=== PATIENT | male | born 1945 | race Caucasian/White ===

== ENCOUNTER 2016-09-30 19:19 | Emergency (ER) | payer OTHER, MEDICARE ==
[~2016-09-30] VITALS: Ht 167.6 cm; Wt 93.2 kg
[~2016-09-30 19:19] MED LIST: ASPCH81X PO; CLC100X PO; ENOX40IN SQ; HYDR-5688 PO; LPR25 PO; LPT/40 PO; NITR0.4S UT; TACLONEX
[2016-09-30 19:20] VITALS: Ht 167.6 cm; Wt 93.2 kg
[2016-09-30] MEDS ORDERED: NEOMYCIN/POLYMYX/HYDROCORT OT SOLN 10 ML BTL OT ONE (19:45)
[2016-09-30 20:16] VITALS: BP 165/94; PULSE 90; TEMP 36.6; O2SAT 94
--- NOTE | 2016-09-30 23:53 | EMERGENCY ROOM VISIT NOTE ---
History Report prepared by Danielle: Bev Meyer Under the Supervision of: Dr. Osmin Begum M.D. First contact with patient: 19:25 Chief Complaint: EAR PAIN Stated Complaint: POSSIBLE INFECTION IN RT EAR W/PAIN History of Present Illness The patient is a 71 year old male who presents to the Emergency Room with complaints of persistent right ear pain that began . He currently rates his discomfort as a 7/10 in severity. The patient states that when his pain began he thought he had a pimple developing in his ear canal. He states that no pimple surfaced. The patient states that he is feeling stuffed up, but denies any fever, vomiting, or sinus congestion. He denies any recent swimming. The patient states that he can still hear but states that he feels that he is in an echo chamber. Source of History: patient Onset: Position: ear (right) Symptom Intensity: 7/10 Timing: other (persistent) Associated Symptoms: No fevers, No vomiting Note: Associated symptoms: feeling stuffed up Review of Systems See HPI for pertinent positives & negatives. A total of 4 systems reviewed and were otherwise negative. Past Medical & Surgical Medical Problems: (1) Brain aneurysm (2) Diverticulitis (3) Heart disease (4) Hypertension (5) Myocardial infarction Surgical Problems: (1) S/P knee surgery Family History Diabetes mellitus Heart disease Hypertension Social History Smoking Status: Former Smoker Alcohol Use: occasionally Marital Status: Housing Status: lives with significant other Occupation Status: retired Current/Historical Medications Scheduled Aspirin (Aspirin Chewable), 81 MG PO DAILY Atorvastatin (Lipitor), 40 MG PO DAILY Hydrocodone/Acetaminophen 5MG/325MG ([place] 5MG/325MG), 1-2 TABLET PO Q4-6HR PRN Metoprolol Tartrate (Lopressor), 25 MG PO BID Nitroglycerin (Nitrostat), 0.4 MG UT PRN [Taclonex Oint], 1 APPLN PRN Allergies Coded Allergies: Zolpidem (Verified Allergy, Intermediate, HALLUCINATION, CONFUSION, ) Promethazine (Verified Allergy, Unknown, 04/29/09) Physical Exam Vital Signs Date Time Temp Pulse Resp B/P (MAP) Pulse Ox O2 Delivery O2 Flow Rate FiO2 09/30/16 20:16 36.6 90 18 165/94 94 09/30/16 19:20 36.6 90 18 165/94 94 Room Air Physical Exam Constitutional: Vital signs reviewed. Eyes: Pupils are equal round reactive to light. Conjunctiva are noninjected. ENT: Tenderness with movement of the tragus, swelling and erythema to the external auditory canal, TM appears clear on the right. Left external auditory canal and TM are within limits. Pharynx is clear without erythema or exudate. Mucous membranes are moist. Neck supple without meningeal signs. Neurological: The patient is awake and alert. No focal deficits. Psychiatric: Normal affect. Medical Decision & Procedures Medications Administered Medications (Trade) Dose Ordered Sig/Velma Route Start Time Stop Time Status Last Admin Dose Admin Neomycin/ Polymyxin/ Hydrocortisone (Cortisporin Otic Soln) 4 drops NOW ONCE OT 09/30/16 19:45 09/30/16 19:46 DC 09/30/16 19:45 4 DROPS ED Course 1925: The patient was evaluated in room D6. A complete history and physical exam was performed. I discussed all the exam findings with him and I discussed the treatment plan. He verbalized complete understanding and agreement. He is ready to go home. 1944: Ordered Cortisporin Otic Soln 4 drops OT. Medical Decision This is a 71-year-old male who presents with ear pain. I did perform a limited focused review of portions of the patient's old chart on the electronic medical record. The patient has had no recent pertinent visits to this hospital. Medication Reconciliation: I attest that I have personally reviewed the patient' s current medication list. Blood Pressure Screening: Patient was found to have an elevated blood pressure and was referred to their primary doctor for recheck and further treatment. I did evaluate the patient as noted above. The patient has a right otitis externa without otitis media. I did treat the patient with a ten-day course of Cortisporin otic. He was discharged in good condition. Impression Primary Impression: Right otitis externa Scribe Attestation The scribe's documentation has been prepared under my direct and personally reviewed by me in its entirety. I confirm that the note above accurately reflects all work, treatment, procedures, and medical decision making performed by me. Departure Information Dispostion Home / Self-Care Referrals Eros Santos D.O. (PCP) Forms HOME CARE DOCUMENTATION FORM, IMPORTANT VISIT INFORMATION, WORK / SCHOOL INSTRUCTIONS Patient Instructions ED Otitis Externa, My [facility] Additional Instructions You have been examined and treated today on an emergency basis only. This is not a substitute for, or an effort to provide, complete comprehensive medical care. It is impossible to recognize and treat all injuries or illnesses in a single emergency department visit. It is therefore important that you follow up closely with your physician. Call as soon as possible for an appointment. Return for worsening symptoms or if you develop fever, vomiting, bleeding from the ear or any other concerning symptoms. Put four ears drops in your right ear three times a day for ten days. Avoid swimming or getting moisture in your ear. Problem Qualifiers Primary Impression: Right otitis externa Otitis externa type: unspecified type Chronicity: acute Qualified Codes: H60.501 - Unspecified acute noninfective otitis externa, right ear
== END 2016-09-30 20:17 | disposition home or self-care (01) ==
LOC: C.EDB 19:20 → C.EDD 20:17
DX: H60.501 Unspecified acute noninfective otitis externa, right ear (principal); I10 Essential (primary) hypertension; I25.2 Old myocardial infarction; Z86.79 Personal history of other diseases of the circulatory system; Z87.891 Personal history of nicotine dependence; Z79.82 Long term (current) use of aspirin; Z83.3 Family history of diabetes mellitus; Z82.49 Family history of ischemic heart disease and other diseases of the circulatory system

== ENCOUNTER 2024-11-19 21:25 | Inpatient (IN) ==
--- NOTE | 2024-11-19 22:33 | Emergency Department Note ---
ED Visit Note ED Physician Supervisory Note & Attestation: I was consulted by the Advanced Practice Provider, Melva ANGELES. I personally made/approved the management plan and take responsibility for the patient management. I performed a substantive portion of the visit. This includes the aspects of: Patient was evaluated by me at bedside. Patient looks well he is no pain and his vital signs are stable. Has had 3 large bloody bowel movements filling the toilet each time this evening. MDM: 79-year-old gentleman on aspirin who had multiple polyps removed earlier today during colonoscopy arrives for heavy GI bleeding. Fortunately initial vital signs stable. Labs type and cross obtained with relatively stable hemoglobin. Plan for hospitalization and continued monitoring. Mj Marti MD
--- NOTE | 2024-11-19 22:56 | Emergency Department Note ---
History of Present Illness General Chief complaint: Rectal Bleed Stated complaint: RECTAL BLEED Time Seen by Provider: 11/19/24 22:16 History of Present Illness This 79-year-old male on aspirin presents ER for 4 episodes of bloody diarrhea who had a colonoscopy today and had a large polyp removed. Patient states he had a cheeseburger and fries for dinner and then later on felt like he had to go the bathroom had some dark liquid diarrhea and then bright red blood. He has had 3 more episodes since with bright red blood. No history of blood transfusion in the past. Patient denies chest pain, dyspnea, abdominal pain, lightheadedness, dizziness. Home Medications Medication Instructions Recorded Confirmed Type aspirin 81 mg tablet,delayed 81 mg PO QAM 08/01/21 11/19/24 History release atorvastatin 40 mg tablet 40 mg PO HS 08/01/21 11/19/24 History furosemide 40 mg tablet 40 mg PO HS 08/01/21 11/19/24 History hydrocodone 5 mg-acetaminophen 325 1 tab PO BID 08/01/21 11/19/24 History mg tablet losartan 50 mg tablet 50 mg PO HS 08/01/21 11/19/24 History metoprolol tartrate 25 mg tablet 25 mg PO BID 08/01/21 11/19/24 History calcium carbonate 2,400 mg PO QAM 11/19/24 11/19/24 History cholecalciferol (vitamin D3) 50 50 mcg PO DAILY 11/19/24 11/19/24 History mcg (2,000 unit) capsule (Vitamin D3) levothyroxine 112 mcg tablet 112 mcg PO DAILYBB 11/19/24 11/19/24 History Allergies Allergy/AdvReac Type Severity Reaction Status Date / Time zolpidem AdvReac Severe Hallucinations, Verified 11/19/24 22:39 confusion promethazine [From Phenergan] AdvReac Intermediate Hallucinati Verified 11/19/24 22:39 ng Past Med/Surg History Problem List (Updated 11/20/24 @ 02:18 by Zuleyka Olivera PA-C) Painless rectal bleeding (Acute) Osteoarthritis of left knee Left knee pain Left bundle branch block Encounter for pre-operative examination Obesity Heart disease (Chronic) Hypertension (Chronic) Right otitis externa (Acute) Medical History Left bundle branch block Obesity History of diverticulitis Retaining fluid Polychondritis Family history of brain aneurysm History of myocardial infarction Thyroid disease HTN (hypertension) Borderline high cholesterol Surgical History History of colonoscopy History of lumbar spinal fusion History of left knee surgery History of right knee surgery History of bowel resection History of surgery Hx of cardiac cath Family History Other Family history of diabetes mellitus in father Social History Smoking Status: Never smoker Do You Dip or Chew Tobacco: No; Hx Alcohol Use: Yes (RARE/MINIMAL) Preferred Language: Slovak Communication Ability: Effective 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 Required: No Beliefs That Will Affect Care: None Current Living Situation: Spouse Feels Safe at Home: Yes Assistive Devices: Glasses Review of Systems A total of 10 systems reviewed and were otherwise negative Physical Exam Vital Signs Vital Signs - 24 hr 11/19/24 21:33 11/19/24 22:54 11/19/24 22:54 Temperature 36.8 C Temperature Source Temporal Artery Scan Pulse Rate 85 Pulse Rate [Apical] 68 Pulse Rhythm [Apical] Pulse Strength [Apical] Respiratory Rate 18 15 Respiratory Effort / Characteristics Non-Labored Spontaneous Non-Labored Spontaneous Respiratory Depth Normal Normal Respiratory Pattern Regular Blood Pressure 117/80 Blood Pressure [Right Arm] 123/83 Blood Pressure Mean 92 Blood Pressure Mean [Right Arm] 96 Blood Pressure Position [Right Arm] Semi-fowlers Pulse Oximetry 97 95 95 Oxygen Delivery Method Room Air Room Air Room Air Sepsis Recent Fever Within 48 Hours No Sepsis New/Unexplained Change in Mental Status N/A Sepsis Action Taken by Nursing No Action Required 11/20/24 00:00 Temperature Temperature Source Pulse Rate Pulse Rate [Apical] 67 Pulse Rhythm [Apical] Regular Pulse Strength [Apical] Normal Respiratory Rate 20 Respiratory Effort / Characteristics Non-Labored Spontaneous Respiratory Depth Normal Respiratory Pattern Regular Blood Pressure Blood Pressure [Right Arm] 124/66 Blood Pressure Mean Blood Pressure Mean [Right Arm] 85 Blood Pressure Position [Right Arm] Lying Pulse Oximetry 96 Oxygen Delivery Method Room Air Sepsis Recent Fever Within 48 Hours Sepsis New/Unexplained Change in Mental Status Sepsis Action Taken by Nursing VITALS: Vitals are noted on the nurse's note and reviewed by myself. Vital signs stable. GENERAL: Pleasant patient with present, in no acute distress, nondiaphoretic, well-developed well-nourished. SKIN: Capillary reflex less than 2 seconds. HEENT: Normocephalic. PERRLA. EOMI. Nares patent. Mucous membranes moist. Neck is supple without nuchal rigidity. HEART: Regular rate and rhythm LUNGS: Clear to auscultation bilaterally without wheezes, rales or rhonchi. No retractions or accessory muscle use. ABDOMEN: Positive bowel sounds x 4. Normal tympanic percussion. Soft, nontender, without masses or organomegaly. Otoole sign negative. No guarding or rebound tenderness. no CVA tenderness MUSCULOSKELETAL: No gross musculoskeletal defects. NEURO: Patient was alert and oriented to person place and time. No focal neurological deficits. Course Administered Medications Discontinued Medications Pantoprazole Sodium 80 mg/ (Dextrose) 120 mls @ 480 mls/hr IV ONE STA Stop: 11/19/24 22:34 Last Infusion: 11/20/24 00:56 Dose: Infused Documented By: Admin: 11/20/24 00:41 Dose: 480 mls/hr Documented By: DANIELA Famotidine (Pepcid 20mg Iv Push) 20 mg in 5 mls @ 2.5 mls/min IV NOW STA Stop: 11/19/24 22:21 Last Admin: 11/19/24 23:01 Dose: 2.5 mls/min Documented By: brooklyn Ioversol (Optiray 320 100ml) 100 ml IV ONCE ONE Stop: 11/20/24 00:08 Last Admin: 11/20/24 00:07 Dose: 93 ml Documented By: SUSI Medical Decision Making Medical Records Attestation: I reviewed the patient's medical records. Home Medications Current Medication List: was personally reviewed by me Laboratory Data Attestation: I reviewed the patient's lab results. 11/20/24 01:04 11/19/24 22:43 Lab Results 11/19/24 11/19/24 11/19/24 Range/Units 22:36 22:43 22:49 WBC 10.50 (4.8-10.8) K/ul RBC 5.14 (4.70-6.10) M/uL Hgb 15.4 (14.0-18.0) g/dl POC Hgb 15.6 (14.0-18.0) g/dl Hct 44.8 (42.0-52.0) % POC Hct 46 (42-52) % MCV 87.2 (80.0-100.0) fL MCH 30.0 (25.0-34.0) pg MCHC 34.4 (32.0-36.0) g/dL RDW Std Deviation 40.2 (36.4-46.3) fL RDW Coeff of Carlin 12.8 (11.5-14.5) % Plt Count 178 (130-400) K/uL MPV 11.2 (9.4-12.4) fL PT 10.7 (9.0-12.0) Seconds INR 1.0 (0.9-1.1) APTT 31 (21-31) Seconds PTT Ratio 1.2 POC Sodium 140 (135-144) mmol/L Sodium 138 (136-145) mmol/L POC Potassium 4.1 (3.3-5.0) mmol/L Potassium 4.0 (3.5-5.1) mmol/L POC Chloride 101 (101-112) mmol/L Chloride 103 (98-107) mmol/L Carbon Dioxide 26 (21-32) mmol/L POC Total CO2 25 (24-31) mmol/L Anion Gap 9 (3-11) POC Anion Gap 19.0 (16-25) mmol/L POC BUN 27 H (7-18) mg/dl BUN 26 H (6-23) mg/dl Creatinine 1.19 (0.6-1.4) mg/dl POC Creatinine 1.3 (0.6-1.3) mg/dl Est Cr Clr Drug Dosing 52.5 ml/min eGFR 62.91 BUN/Creatinine Ratio 21.8 H (10-20) Glucose 130 H (70-99(Fasting)) mg/dl POC Glucose (other) 132 H (70-99) mg/dl Calcium 9.1 (8.6-10.3) mg/dl POC Ioniz Calcium Justus 1.12 (1.12-1.32) mmol/l Total Bilirubin 1.1 H (0.2-1.0) mg/dl AST 23 (13-39) U/L ALT 31 (7-52) U/L Alkaline Phosphatase 95 (34-104) U/L Troponin I High Sens 5.9 (0-20) pg/ml Total Protein 7.6 (6.0-8.3) gm/dl Albumin 4.1 (3.4-5.0) gm/dl Globulin 3.5 (2.5-4.0) gm/dl Albumin/Globulin Ratio 1.2 (0.9-2) POC Stool Occult Blood (Negative) Blood Type O Positive Antibody Screen NEGATIVE 11/20/24 11/20/24 Range/Units 00:18 01:04 WBC (4.8-10.8) K/ul RBC (4.70-6.10) M/uL Hgb 14.5 (14.0-18.0) g/dl POC Hgb (14.0-18.0) g/dl Hct 42.8 (42.0-52.0) % POC Hct (42-52) % MCV (80.0-100.0) fL MCH (25.0-34.0) pg MCHC (32.0-36.0) g/dL RDW Std Deviation (36.4-46.3) fL RDW Coeff of Carlin (11.5-14.5) % Plt Count (130-400) K/uL MPV (9.4-12.4) fL PT (9.0-12.0) Seconds INR (0.9-1.1) APTT (21-31) Seconds PTT Ratio POC Sodium (135-144) mmol/L Sodium (136-145) mmol/L POC Potassium (3.3-5.0) mmol/L Potassium (3.5-5.1) mmol/L POC Chloride (101-112) mmol/L Chloride (98-107) mmol/L Carbon Dioxide (21-32) mmol/L POC Total CO2 (24-31) mmol/L Anion Gap (3-11) POC Anion Gap (16-25) mmol/L POC BUN (7-18) mg/dl BUN (6-23) mg/dl Creatinine (0.6-1.4) mg/dl POC Creatinine (0.6-1.3) mg/dl Est Cr Clr Drug Dosing ml/min eGFR BUN/Creatinine Ratio (10-20) Glucose (70-99(Fasting)) mg/dl POC Glucose (other) (70-99) mg/dl Calcium (8.6-10.3) mg/dl POC Ioniz Calcium Justus (1.12-1.32) mmol/l Total Bilirubin (0.2-1.0) mg/dl AST (13-39) U/L ALT (7-52) U/L Alkaline Phosphatase (34-104) U/L Troponin I High Sens (0-20) pg/ml Total Protein (6.0-8.3) gm/dl Albumin (3.4-5.0) gm/dl Globulin (2.5-4.0) gm/dl Albumin/Globulin Ratio (0.9-2) POC Stool Occult Blood Positive A (Negative) Blood Type Antibody Screen Imaging Data Attestation: I personally reviewed and interpreted this imaging study as follows: Radiologist's Impression: Abdomen/Pelvis CT 11/19/24 22:20 EXAM: CT abd pelvis IV con only CLINICAL HISTORY: colonoscopy today, rectal bleeding, polyp removed TECHNIQUE: Contiguous axial images were obtained from the level of the diaphragm to the pubic symphysis with intravenous contrast. Coronal and sagittal reconstructions were likewise performed and indicated to increase the sensitivity for detecting clinically relevant pathology. If IV contrast material had not been administered, the likelihood of detecting abnormalities relevant to the patient's condition would have been substantially decreased. CT scan was performed according to ALARA (as low as reasonable achievable). COMPARISON: None FINDINGS: The visualized lung bases are clear. The liver is normal in size and attenuation. Few hypodense lesions are noted in bothlobe of liver - appears benign/ could be Cyst (Advice: Triphasic study correlation). There is no intra or extrahepatic biliary ductal dilatation. Hepatic vasculature is patent. The gallbladder is present. The spleen, pancreas, and adrenal glands are unremarkable. The kidneys are normal in size and attenuation. There is no hydronephrosis or perinephric fat stranding. No renal calculi or renal masses are identified. The ureters are normal in caliber and no ureteral calculi are seen. The bladder is normal in contour. Pelvic viscera are unremarkable. Enlarged prostate measuring about 56 x 58 mm. No focal or diffuse bowel wall thickening or evidence of bowel obstruction is identified. The appendix is visualized in the right lower quadrant and appears within normal limits. Abdominal and pelvic vasculature is patent. No adenopathy or fluid collections are seen. No aggressive appearing osseous lesions are identified. Fat containing right sided inguinal hernia. Degenerative changes involving spine in the form of multilevel marginal osteophytes, disc space reduction and facetal arthrosis. IMPRESSION: 1. Few hypodense lesions are noted in both lobe of liver - appears benign/ could be Cyst (Advice: ultrasound). 2. Enlarged prostate. 3. Fat containing right sided inguinal hernia. 4. No other intra-abdominal abnormalities. Electronically signed by Jose D Dow 11-20-2024 01:38 AM [facility] Narrative Prior records/ancillary studies reviewed. Triage Nursing notes reviewed. Additional history obtained from the family. The patient's history was concerning for possible gastrointestinal bleeding. Differential diagnosis: Etiologies such as complication of colonoscopy, diverticulosis, AVM, coagulopathy, colitis, inflammatory bowel disease, malignancy, Kathi-Seo tear, esophagitis, peptic ulcer disease, variceal bleed, gastritis, epistaxis, fissure, hemorrhoids, as well as others were entertained. Physical exam: As above. The patients vital signs were stable. ER treatment provided: An order was placed for continuous cardiac monitoring. The monitor shows a rate of 60-100 with a sinus rhythm per my interpretation. Protonix, Pepcid, 2 IV lines, IV fluids type and screen was sent and patient was consented to blood if warranted On reassessment the patient felt better. Diagnostics interpreted by me: ECG: Ordered for GI bleed EKG: Normal sinus, right axis, left bundle branch block, no acute ST-T wave changes, no Sgarbossa, rate of 73. Impression normal sinus rhythm left bundle branch block independently interpreted myself The labs Independently Interpreted by myself revealed stable H&H, repeat H&H is similar Type and screen sent Imaging studies: Imaging was reviewed and read by radiology Consultation: A consultation was placed with the hospitalist. The case was discussed and diagnostics were reviewed. The patient was evaluated in the ER for further treatment. This appears to be consistent with rectal bleeding from recent colonoscopy from polyps being removed. Stable H&H. Imaging was reviewed. Medicine was consulted and case discussed. Patient will be admitted to the medical service. By the evaluation outlined above emergent etiologies such as esophageal perforation, peptic ulcer disease, variceal bleed, coagulopathy, gastritis, epistaxis, malignancy, inflammatory bowel disease, as well as others were deemed relatively unlikely. The pt informed about the findings as listed above. All questions were answered and pleased with the treatment. The chart was completed utilizing [employer] Speech voice recognition software. Grammatical errors, random word insertions, pronoun errors, and incomplete sentences are an occassional consequence of this system due to software limitations, ambient noise, and hardware issues. Any formal questions or concerns about the content, text, or information contained within the body of this dictation should be directly addressed to the physician clinical assistant professor for clarification. Impression & Plan Painless rectal bleeding Discharge Plan Visit Data Chief Complaint: Rectal Bleed Stated Complaint: RECTAL BLEED ED Provider: Mj Marti ED Midlevel Provider: Zuleyka Olivera Discharge Problem: Painless rectal bleeding Patient Disposition: Admitted As Inpatient Condition: Good Forms Stand Alone Forms: [employer] Prescriptions Prescriptions: No Action losartan 50 mg Tablet 50 mg PO HS furosemide 40 mg Tablet 40 mg PO HS atorvastatin 40 mg Tablet 40 mg PO HS hydrocodone-acetaminophen 5-325 mg Tablet 1 tab PO BID Rx Instructions: MAY TAKE ADDITIONAL TABLET AFTER FIRST DOSE 1 DAY/WEEK. aspirin 81 mg Tablet,Delayed Release (Dr/Ec) 81 mg PO QAM metoprolol tartrate 25 mg Tablet 25 mg PO BID calcium carbonate 600 mg calcium (1,500 mg) Tablet 2,400 mg PO QAM levothyroxine 112 mcg tablet 112 mcg PO DAILYBB cholecalciferol (vitamin D3) [Vitamin D3] 50 mcg (2,000 unit) Capsule 50 mcg PO DAILY Referrals Referrals: Miguelito Bennett MD [Primary Care Provider] -
[2024-11-19] MEDS: FAMOTIDINE 20MG IV PUSH 20 MG/5 ML SYR IV STA (23:01)
[2024-11-19 23:09] LABS: Hematocrit (blood only) 44.8 % (42.0-52.0); Hemoglobin 15.4 g/dl (14.0-18.0); Mean Corpuscular Hemoglobin 30.0 pg (25.0-34.0); Mean Corpuscular Volume 87.2 fL (80.0-100.0); Platelet Count 178 K/uL (130-400); RDW Standard Deviation 40.2 fL (36.4-46.3); Red Blood Count 5.14 M/uL (4.70-6.10); White Blood Count 10.50 K/ul (4.8-10.8)
[2024-11-19 23:33] LABS: Alanine Aminotransferase 31.0 U/L (7-52); Albumin Globulin Ratio 1.2 (0.9-2); Alkaline Phosphatase 95.0 U/L (34-104); Anion Gap 9.0 (3-11); Bilirubin,Total 1.1 mg/dl (0.2-1.0); Blood Urea Nitrogen 26.0 mg/dl (6-23); Calcium 9.1 mg/dl (8.6-10.3); Carbon Dioxide 26.0 mmol/L (21-32); Chloride 103.0 mmol/L (98-107); Creatinine Clr Calc Pharmacy 52.5 ml/min; Globulin 3.5 gm/dl (2.5-4.0); Glucose 130.0 mg/dl (70-99(Fasting)); Potassium 4.0 mmol/L (3.5-5.1); Sodium 138.0 mmol/L (136-145); Total Protein 7.6 gm/dl (6.0-8.3)
[2024-11-19 23:39] LABS: INR 1.0 (0.9-1.1); Partial Thromboplastin Time 31 Seconds (21-31); Prothrombin Time 10.7 Seconds (9.0-12.0)
[2024-11-20] MEDS: OPTIRAY 320 100ml IV ONE (00:07)
[2024-11-20 01:33] LABS: Hematocrit (blood only) 42.8 % (42.0-52.0); Hemoglobin 14.5 g/dl (14.0-18.0)
--- NOTE | 2024-11-20 01:38 | CT Scan Report ---
EXAM: CT abd pelvis IV con only CLINICAL HISTORY: colonoscopy today, rectal bleeding, polyp removed TECHNIQUE: Contiguous axial images were obtained from the level of the diaphragm to the pubic symphysis with intravenous contrast. Coronal and sagittal reconstructions were likewise performed and indicated to increase the sensitivity for detecting clinically relevant pathology. If IV contrast material had not been administered, the likelihood of detecting abnormalities relevant to the patient's condition would have been substantially decreased. CT scan was performed according to ALARA (as low as reasonable achievable). COMPARISON: None FINDINGS: The visualized lung bases are clear. The liver is normal in size and attenuation. Few hypodense lesions are noted in bothlobe of liver - appears benign/ could be Cyst (Advice: Triphasic study correlation). There is no intra or extrahepatic biliary ductal dilatation. Hepatic vasculature is patent. The gallbladder is present. The spleen, pancreas, and adrenal glands are unremarkable. The kidneys are normal in size and attenuation. There is no hydronephrosis or perinephric fat stranding. No renal calculi or renal masses are identified. The ureters are normal in caliber and no ureteral calculi are seen. The bladder is normal in contour. Pelvic viscera are unremarkable. Enlarged prostate measuring about 56 x 58 mm. No focal or diffuse bowel wall thickening or evidence of bowel obstruction is identified. The appendix is visualized in the right lower quadrant and appears within normal limits. Abdominal and pelvic vasculature is patent. No adenopathy or fluid collections are seen. No aggressive appearing osseous lesions are identified. Fat containing right sided inguinal hernia. Degenerative changes involving spine in the form of multilevel marginal osteophytes, disc space reduction and facetal arthrosis. IMPRESSION: 1. Few hypodense lesions are noted in both lobe of liver - appears benign/ could be Cyst (Advice: ultrasound). 2. Enlarged prostate. 3. Fat containing right sided inguinal hernia. 4. No other intra-abdominal abnormalities. Electronically signed by Jose D Dow 11-20-2024 01:38 AM
--- NOTE | 2024-11-20 04:56 | History & Physical Report ---
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 Patient had colonoscopy yesterday. Per patient currently getting colonoscopy every 3 years because of polyps. Yesterday had colonoscopy and 5 polyps were removed and 1 polyp was 20 mm found in the hepatic flexure. Multiple colonic angioectasis without bleeding were found in the ascending colon and in the cecum. Did okay after colonoscopy. Last night around 9 PM patient started to have rectal bleed multiple episodes. Until 1 AM the bleeding was getting worse but after that seems to be improving. Denies abdominal pain. No fevers. Micturating okay. No chest pain or shortness of breath. No headache. No runny nose or sore throat. Currently resting comfortably and hemodynamically stable. Painless rectal bleeding Status post colonoscopy and polypectomy yesterday Hemoglobin stable at 14.5 Hemodynamic stable N.p.o., IV fluids H&H every 6 hours Telemetry GI consult for further recommendation. History of CAD In 2007 Holding aspirin for rectal bleed Continue metoprolol tartrate with holding parameters Continue statin Hypothyroidism Continue Synthyroid Hyperparathyroidism On calcium and vitamin supplements Follows with endocrinology Hypertension Continue losartan metoprolol tartrate with holding parameters Holding Lasix Diabetes Not on meds Currently n.p.o. Sliding scale Will follow HbA1c levels DVT prophylaxis SCDs Disposition Telemetry Full code. History of Present Illness Chief Complaint: Rectal bleed Primary Care Provider: Miguelito Bennett MD 79-year-old male with past medical history significant for type 2 diabetes, hyperlipidemia, psoriasis, relapsing polychondritis, CAD, chronic left bundle- branch block, history of cerebral aneurysm clipping and subsequent ventricular shunt June 2004, history of profound hypothyroidism with myxedema 2020, hyperparathyroidism presents with rectal bleeding post colonoscopy and polypectomy. Patient had colonoscopy yesterday. Per patient currently getting colonoscopy every 3 years because of polyps. Yesterday had colonoscopy and 5 polyps were removed and 1 polyp was 20 mm found in the hepatic flexure. Multiple colonic angioectasis without bleeding were found in the ascending colon and in the cecum. Did okay after colonoscopy. Last night around 9 PM patient started to have rectal bleed multiple episodes. Until 1 AM the bleeding was getting worse but after that seems to be improving. Denies abdominal pain. No fevers. Micturating okay. No chest pain or shortness of breath. No headache. No runny nose or sore throat. Currently resting comfortably and hemodynamically stable. Past medical history. As mentioned above. Past surgical history. Colonoscopy. Knee arthroscopy. Lumbar hemilaminectomy. Status post lap sigmoid colectomy status colostomy at [facility] in 2004. Excision of cyst from left neck. Cerebral aneurysm clipped and shunt placed. Left inguinal hernia repair. Social history. . Quit smoking 2004. Smoked 1.5 pack a day for 35 years. Alcohol rarely. No drug use. Family history. Sister had brain aneurysm. Father had diabetes. [place]. Sister had diverticulitis. Allergies Allergy/AdvReac Type Severity Reaction Status Date / Time zolpidem AdvReac Severe Hallucinations, Verified 11/19/24 22:39 confusion promethazine [From Phenergan] AdvReac Intermediate Hallucinati Verified 11/19/24 22:39 ng Home Medications Medication Instructions Recorded Confirmed Type aspirin 81 mg tablet,delayed 81 mg PO QAM 08/01/21 11/19/24 History release atorvastatin 40 mg tablet 40 mg PO HS 08/01/21 11/19/24 History furosemide 40 mg tablet 40 mg PO HS 08/01/21 11/19/24 History hydrocodone 5 mg-acetaminophen 325 1 tab PO BID 08/01/21 11/19/24 History mg tablet losartan 50 mg tablet 50 mg PO HS 08/01/21 11/19/24 History metoprolol tartrate 25 mg tablet 25 mg PO BID 08/01/21 11/19/24 History calcium carbonate 2,400 mg PO QAM 11/19/24 11/19/24 History cholecalciferol (vitamin D3) 50 50 mcg PO DAILY 11/19/24 11/19/24 History mcg (2,000 unit) capsule (Vitamin D3) levothyroxine 112 mcg tablet 112 mcg PO DAILYBB 11/19/24 11/19/24 History Past Med/Surg History Problem List (Updated 11/20/24 @ 02:18 by Zuleyka Olivera PA-C) Painless rectal bleeding (Acute) Osteoarthritis of left knee Left knee pain Left bundle branch block Encounter for pre-operative examination Obesity Heart disease (Chronic) Hypertension (Chronic) Right otitis externa (Acute) Medical History Left bundle branch block Obesity History of diverticulitis Retaining fluid Polychondritis Family history of brain aneurysm History of myocardial infarction Thyroid disease HTN (hypertension) Borderline high cholesterol Surgical History History of colonoscopy History of lumbar spinal fusion History of left knee surgery History of right knee surgery History of bowel resection History of surgery Hx of cardiac cath Family History Other Family history of diabetes mellitus in father Social History Smoking Status: Never smoker Do You Dip or Chew Tobacco: No; Hx Alcohol Use: Yes (RARE/MINIMAL) Preferred Language: Danish Communication Ability: Effective Patcher Required: No Beliefs That Will Affect Care: None Current Living Situation: Spouse Feels Safe at Home: Yes Assistive Devices: Glasses Review of Systems Review of Systems: All systems reviewed & are unremarkable except as noted in HPI & below Physical Exam Physical Exam: General- Not in distress Head- atraumatic Eyes- PERRL. ENT- oropharynx clear Neck- supple, no JVD. Lungs- clear to auscultation no wheezing or crackles Heart- regular rhythm; no murmur, no gallop. Abdomen- normal bowel sounds, soft, nontender, no distension Extremities- no pretibial edema, no erythema seen Neuro- alert, oriented PERRL, no facial palsy; no dysarthria; moves extremities Results & Data Results & Data Vital Signs (Past 12 Hours) Vital Signs Temp Pulse Pulse Resp BP BP Pulse Ox 11/20/24 04:00 62 18 144/79 H 93 11/20/24 02:00 63 20 120/77 95 11/20/24 01:00 61 15 139/73 92 11/20/24 00:00 67 20 124/66 96 11/19/24 22:54 95 11/19/24 22:54 68 15 123/83 95 11/19/24 22:32 79 11/19/24 21:33 36.8 C 85 18 117/80 97 O2 Del Method 11/20/24 04:00 Room Air 11/20/24 02:00 11/20/24 01:00 11/20/24 00:00 Room Air 11/19/24 22:54 Room Air 11/19/24 22:54 Room Air 11/19/24 22:32 11/19/24 21:33 Room Air Diagnostic Findings Laboratory Results WBC 10.50 K/ul (4.8-10.8) 11/19/24 22:43 RBC 5.14 M/uL (4.70-6.10) 11/19/24 22:43 Hgb 14.5 g/dl (14.0-18.0) 11/20/24 01:04 POC Hgb 15.6 g/dl (14.0-18.0) 11/19/24 22:49 Hct 42.8 % (42.0-52.0) 11/20/24 01:04 POC Hct 46 % (42-52) 11/19/24 22:49 MCV 87.2 fL (80.0-100.0) 11/19/24 22:43 MCH 30.0 pg (25.0-34.0) 11/19/24 22:43 MCHC 34.4 g/dL (32.0-36.0) 11/19/24 22:43 RDW Std Deviation 40.2 fL (36.4-46.3) 11/19/24 22:43 RDW Coeff of Carlin 12.8 % (11.5-14.5) 11/19/24 22:43 Plt Count 178 K/uL (130-400) 11/19/24 22:43 MPV 11.2 fL (9.4-12.4) 11/19/24 22:43 PT 10.7 Seconds (9.0-12.0) 11/19/24 22:43 INR 1.0 (0.9-1.1) 11/19/24 22:43 APTT 31 Seconds (21-31) 11/19/24 22:43 PTT Ratio 1.2 11/19/24 22:43 POC Sodium 140 mmol/L (135-144) 11/19/24 22:49 Sodium 138 mmol/L (136-145) 11/19/24 22:43 POC Potassium 4.1 mmol/L (3.3-5.0) 11/19/24 22:49 Potassium 4.0 mmol/L (3.5-5.1) 11/19/24 22:43 POC Chloride 101 mmol/L (101-112) 11/19/24 22:49 Chloride 103 mmol/L (98-107) 11/19/24 22:43 Carbon Dioxide 26 mmol/L (21-32) 11/19/24 22:43 POC Total CO2 25 mmol/L (24-31) 11/19/24 22:49 Anion Gap 9 (3-11) 11/19/24 22:43 POC Anion Gap 19.0 mmol/L (16-25) 11/19/24 22:49 POC BUN 27 mg/dl (7-18) H 11/19/24 22:49 BUN 26 mg/dl (6-23) H 11/19/24 22:43 Creatinine 1.19 mg/dl (0.6-1.4) 11/19/24 22:43 POC Creatinine 1.3 mg/dl (0.6-1.3) 11/19/24 22:49 Est Cr Clr Drug Dosing 52.5 ml/min 11/19/24 22:43 eGFR 62.91 11/19/24 22:43 BUN/Creatinine Ratio 21.8 (10-20) H 11/19/24 22:43 Glucose 130 mg/dl (70-99(Fasting)) H 11/19/24 22:43 POC Glucose (other) 132 mg/dl (70-99) H 11/19/24 22:49 Calcium 9.1 mg/dl (8.6-10.3) 11/19/24 22:43 POC Ioniz Calcium Justus 1.12 mmol/l (1.12-1.32) 11/19/24 22:49 Total Bilirubin 1.1 mg/dl (0.2-1.0) H 11/19/24 22:43 AST 23 U/L (13-39) 11/19/24 22:43 ALT 31 U/L (7-52) 11/19/24 22:43 Alkaline Phosphatase 95 U/L (34-104) 11/19/24 22:43 Troponin I High Sens 5.9 pg/ml (0-20) 11/19/24 22:43 Total Protein 7.6 gm/dl (6.0-8.3) 11/19/24 22:43 Albumin 4.1 gm/dl (3.4-5.0) 11/19/24 22:43 Globulin 3.5 gm/dl (2.5-4.0) 11/19/24 22:43 Albumin/Globulin Ratio 1.2 (0.9-2) 11/19/24 22:43 POC Stool Occult Blood Positive (Negative) A 11/20/24 00:18 Blood Type O Positive 11/19/24 22:36 Antibody Screen NEGATIVE 11/19/24 22:36 Impressions Abdomen/Pelvis CT 11/19/24 22:20 EXAM: CT abd pelvis IV con only CLINICAL HISTORY: colonoscopy today, rectal bleeding, polyp removed TECHNIQUE: Contiguous axial images were obtained from the level of the diaphragm to the pubic symphysis with intravenous contrast. Coronal and sagittal reconstructions were likewise performed and indicated to increase the sensitivity for detecting clinically relevant pathology. If IV contrast material had not been administered, the likelihood of detecting abnormalities relevant to the patient's condition would have been substantially decreased. CT scan was performed according to ALARA (as low as reasonable achievable). COMPARISON: None FINDINGS: The visualized lung bases are clear. The liver is normal in size and attenuation. Few hypodense lesions are noted in bothlobe of liver - appears benign/ could be Cyst (Advice: Triphasic study correlation). There is no intra or extrahepatic biliary ductal dilatation. Hepatic vasculature is patent. The gallbladder is present. The spleen, pancreas, and adrenal glands are unremarkable. The kidneys are normal in size and attenuation. There is no hydronephrosis or perinephric fat stranding. No renal calculi or renal masses are identified. The ureters are normal in caliber and no ureteral calculi are seen. The bladder is normal in contour. Pelvic viscera are unremarkable. Enlarged prostate measuring about 56 x 58 mm. No focal or diffuse bowel wall thickening or evidence of bowel obstruction is identified. The appendix is visualized in the right lower quadrant and appears within normal limits. Abdominal and pelvic vasculature is patent. No adenopathy or fluid collections are seen. No aggressive appearing osseous lesions are identified. Fat containing right sided inguinal hernia. Degenerative changes involving spine in the form of multilevel marginal osteophytes, disc space reduction and facetal arthrosis. IMPRESSION: 1. Few hypodense lesions are noted in both lobe of liver - appears benign/ could be Cyst (Advice: ultrasound). 2. Enlarged prostate. 3. Fat containing right sided inguinal hernia. 4. No other intra-abdominal abnormalities. Electronically signed by Jose D Dow 11-20-2024 01:38 AM ECG Additional Comments: ECG. Normal sinus rhythm rate of 73. Right axis deviation. Left bundle branch block. QTc 469.
[2024-11-20] MEDS ORDERED: GLUCOSE 40% GEL 15 GM TUBE PO PRN (05:46)
[2024-11-20] MEDS ORDERED: NITROGLYCERIN SL 0.4 MG/TAB TAB SL PRN (05:46)
[2024-11-20] MEDS ORDERED: GLUCAGON FOR INJ 1 MG VIAL SQ PRN (05:46)
[2024-11-20] MEDS ORDERED: ACETAMINOPHEN 325 MG TAB PO PRN (05:46)
[2024-11-20] MEDS ORDERED: DEXTROSE 50% 50 ML SYRINGE IV PRN (05:46)
[2024-11-20] MEDS ORDERED: CARBOHYDRATES FOR HYPOGLYCEMIA PO PRN (05:46)
[2024-11-20] MEDS ORDERED: GLUCOSE 10 TAB/TUBE PO PRN (05:46)
[2024-11-20] MEDS: INSULIN ASPART PER UNIT CHARGE SC SCH (06:28)
[2024-11-20] MEDS: SODIUM CHLORIDE 0.9% 1,000 ML IV SCH (06:32)
[2024-11-20 07:36] LABS: Hematocrit (blood only) 41.4 % (42.0-52.0); Hemoglobin 14.2 g/dl (14.0-18.0); Immature Granulocytes # (auto) 0.01 K/uL (0.01-0.20); Immature Granulocytes % (auto) 0.1 %; Mean Corpuscular Hemoglobin 30.1 pg (25.0-34.0); Mean Corpuscular Volume 87.9 fL (80.0-100.0); Platelet Count 141 K/uL (130-400); RDW Standard Deviation 40.3 fL (36.4-46.3); Red Blood Count 4.71 M/uL (4.70-6.10); White Blood Count 7.19 K/ul (4.8-10.8)
[2024-11-20] MEDS: LEVOTHYROXINE SODIUM 112 MCG TABLET PO SCH (07:38)
[2024-11-20] MEDS: CHOLECALCIFEROL 25 MCG (1000 UNITS) TAB PO SCH (07:42)
[2024-11-20] MEDS: CALCIUM CARBONATE 1250MG TAB PO SCH (07:42)
[2024-11-20] MEDS: METOPROLOL TARTRATE 25 MG TAB PO SCH (07:42)
[2024-11-20 07:55] LABS: Anion Gap 6.0 (3-11); Blood Urea Nitrogen 23.0 mg/dl (6-23); Calcium 8.7 mg/dl (8.6-10.3); Carbon Dioxide 28.0 mmol/L (21-32); Chloride 104.0 mmol/L (98-107); Creatinine Clr Calc Pharmacy 55.8 ml/min; Glucose 122.0 mg/dl (70-99(Fasting)); Magnesium 2.3 mg/dl (1.7-2.4); Potassium 4.0 mmol/L (3.5-5.1); Sodium 138.0 mmol/L (136-145)
[2024-11-20 07:59] LABS: Hemoglobin A1C 6.6 % (4.5-5.6)
--- NOTE | 2024-11-20 08:37 | Gastrointestinal Consultation ---
Date of Consultation November 20, 2024 Assessment & Plan (1) Painless rectal bleedin79 year old male with history of LBBB, HTN, OA and others below admitted w/ BRBPR onset few hours after colonoscopy w/ removal of 20 mm hepatic flexure polyp w/ hot snare, clips placed. He endorses 7+ episodes of painless hematochezia, most recent episode was prior to transfer from ED [facility]. HGB 14, vitals stable Case discussed w/ Dr. Hwang, offered to initiate transfer. Patient agreeable, awaiting ongoing discussion w/ Dr. Hwang to discuss his clinic course this admission Hold ASA NPO for now Potential transfer to [facility] I spent a total of 60 minutes on the date of service in review of patient's record, and previously obtained information in person and appropriate medical visit, discussion and education of plan, with patient and/or caregiver, placing orders for tests/referral/procedures as medically necessary and documentation of pertinent clinical information in patient's medical records for their visit today. Supervising Physician Co-Signing Physician Notes The patient was seen and evaluated. Hospital labs, data, records and imaging reviewed at length. The patient is status post colonoscopy with multiple polypectomies including a saline assisted hot snare polypectomy at the splenic flexure which likely represents the source of the patient's bleeding. The patient's blood counts are stable at this time and he has not had further hematochezia. A transfer has been requested to the initial rendering endoscopist For further evaluation and repeat colonoscopy if necessary. History of Present Illness Reason for Consultation: rectal bleed post polypectomy Requesting Physician: Kelin Blackwell MD Attending Physician: Kelin Blackwell MD History of Present Illness 79 year old male with history of LBBB, HTN, OA and others below admitted w/ BRBPR onset few hours after colonoscopy w/ removal of 20 mm hepatic flexure polyp. Suggests he was feeling well, advanced diet. Bronson urge to move stool, passed some stool w/ large amount of BRB. No clots. No black stools. Suggests moments later, passed additional large volume bloody stool - sought ED care. In ED had 5 additional episodes of hematochezia. Notes since [facility], no further passage of blood, passing gas. No abd pain. No nausea/vomiting. Taking baby ASA. No anticoagulation. Case discussed w/ Dr. Hwang, offered to initiate transfer. Patient agreeable Colonoscopy 2024: Patent end-to-side colo-colonic anastomosis, characterized by healthy appearing mucosa. Diverticulosis in the descending colon.Two 3 to 4 mm polyps at the hepatic flexure, removed with a cold snare. Resected and retrieved. One 20 mm polyp at the hepatic flexure, removed using injection-lift and a hot snare. Resected and retrieved.One 3 mm polyp in the ascending colon, removed with a cold snare. Resected and retrieved. Multiple non-bleeding colonic angioectasias. The examination was otherwise normal. Colonoscopy 2021: One 4 mm polyp in the rectum, removed with a cold snare. Resected and retrieved. - Patent end-to-side colo-colonic anastomosis, characterized by healthy appearing mucosa. - One 1 mm polyp at the splenic flexure, removed with a cold biopsy forceps. Resected and retrieved. - Two 8 to 10 mm polyps in the transverse colon, removed with a cold snare. Resected and retrieved. - One 5 mm polyp in the cecum, removed with a cold snare. Resected and retrieved. - A few non-bleeding colonic angiodysplastic lesions. - Lipomatous ileocecal valve. - The examined portion of the ileum was normal. - The examination was otherwise normal. Colonoscopy 2010: Patent end-to-end ileo-colonic anastomosis. - The examination was otherwise normal. - Diverticulosis was not seen Allergies Allergy/AdvReac Type Severity Reaction Status Date / Time zolpidem AdvReac Severe Hallucinations, Verified 11/19/24 22:39 confusion promethazine [From Phenergan] AdvReac Intermediate Hallucinati Verified 11/19/24 22:39 ng Home Medications Medication Instructions Recorded Confirmed Type aspirin 81 mg tablet,delayed 81 mg PO QAM 08/01/21 11/19/24 History release atorvastatin 40 mg tablet 40 mg PO HS 08/01/21 11/19/24 History furosemide 40 mg tablet 40 mg PO HS 08/01/21 11/19/24 History hydrocodone 5 mg-acetaminophen 325 1 tab PO BID 08/01/21 11/19/24 History mg tablet losartan 50 mg tablet 50 mg PO HS 08/01/21 11/19/24 History metoprolol tartrate 25 mg tablet 25 mg PO BID 08/01/21 11/19/24 History calcium carbonate 2,400 mg PO QAM 11/19/24 11/19/24 History cholecalciferol (vitamin D3) 50 50 mcg PO DAILY 11/19/24 11/19/24 History mcg (2,000 unit) capsule (Vitamin D3) levothyroxine 112 mcg tablet 112 mcg PO DAILYBB 11/19/24 11/19/24 History Patient History Medical History (Updated 11/20/24 @ 08:[address]) Diabetes mellitus, type 2 History of diverticulitis Retaining fluid ANKLES AND LEGS; OCCURED WHEN THYROID NUMBER WAS TOO HIGH - HAS COME DOWN SIGNIFICANTLY Polychondritis Family history of brain aneurysm 1990...PAIN BEHIND RIGHT EYE SINCE - REASON FOR PAIN MEDICINE History of myocardial infarction APR 2007 - HX HEART CATH... "INSIGNIFICANT" - NO STENT(S) Thyroid disease HTN (hypertension) Borderline high cholesterol Surgical History History of colonoscopy History of lumbar spinal fusion History of left knee surgery History of right knee surgery History of bowel resection FOR DIVERTICULITIS History of surgery 1990 FOR BRAIN ANNEURSYM CLIP AND SHUNT (BOTH REMAIN CURRENTLY) Hx of cardiac cath 2007 - NO STENTS Family History Other Family history of diabetes mellitus in father Social History Smoking Status: Never smoker Do You Dip or Chew Tobacco: No; Hx Alcohol Use: No Hx Substance Use: No Preferred Language: Brazilian Communication Ability: Effective Endoscopy Technican Required: No Beliefs That Will Affect Care: None Current Living Situation: Spouse Current Living Situation Comment: lives at home with Other Information That Helps Us Care for You: No Feels Safe at Home: Yes Safety Concerns: Feels Safe At This Time Assistive Devices: Glasses Review of Systems Review of Systems: All other findings negative except as noted in HPI. Physical Exam Constitutional: WD/WN, vitals as above Respiratory: normal respiratory effort, lungs clear to auscultation Cardiovascular: RRR, no murmur, no edema Gastrointestinal (Abdomen): normal bowel sounds, soft, nontender, no hepatosplenomegaly Skin: no rashes, warm and dry Results & Data Vital Signs (Past 12 Hours) Vital Signs Temp Pulse Pulse Resp BP BP Pulse Ox 11/20/24 07:42 69 20 131/74 98 11/20/24 06:44 62 18 144/79 H 95 11/20/24 04:00 62 18 144/79 H 93 11/20/24 02:00 63 20 120/77 95 11/20/24 01:00 61 15 139/73 92 11/20/24 00:00 67 20 124/66 96 11/19/24 22:54 95 11/19/24 22:54 68 15 123/83 95 11/19/24 22:32 79 11/19/24 21:33 98.2 F 85 18 117/80 97 O2 Del Method 11/20/24 07:42 11/20/24 06:44 Room Air 11/20/24 04:00 Room Air 11/20/24 02:00 11/20/24 01:00 11/20/24 00:00 Room Air 11/19/24 22:54 Room Air 11/19/24 22:54 Room Air 11/19/24 22:32 11/19/24 21:33 Room Air Laboratory Results 11/20/24 11/20/24 11/20/24 Range/Units 07:05 06:26 01:04 WBC 7.19 (4.8-10.8) K/ul RBC 4.71 (4.70-6.10) M/uL Hgb 14.2 14.5 (14.0-18.0) g/dl POC Hgb (14.0-18.0) g/dl Hct 41.4 L 42.8 (42.0-52.0) % POC Hct (42-52) % MCV 87.9 (80.0-100.0) fL MCH 30.1 (25.0-34.0) pg MCHC 34.3 (32.0-36.0) g/dL RDW Std Deviation 40.3 (36.4-46.3) fL RDW Coeff of Carlin 12.6 (11.5-14.5) % Plt Count 141 (130-400) K/uL MPV 11.1 (9.4-12.4) fL Immature Gran % (Auto) 0.1 % Neut % (Auto) 65.7 % Lymph % (Auto) 23.1 % Haralson % (Auto) 9.0 % Eos % (Auto) 1.5 % Baso % (Auto) 0.6 % Neut # (Auto) 4.72 (1.40-6.50) K/uL Lymph # (Auto) 1.66 (1.20-3.40) K/uL Haralson # (Auto) 0.65 H (0.11-0.59) K/uL Eos # (Auto) 0.11 (0.00-0.50) K/uL Baso # (Auto) 0.04 (0.00-0.20) K/uL Immature Gran # (Auto) 0.01 (0.01-0.20) K/uL PT (9.0-12.0) Seconds INR (0.9-1.1) APTT (21-31) Seconds PTT Ratio POC Sodium (135-144) mmol/L Sodium 138 (136-145) mmol/L POC Potassium (3.3-5.0) mmol/L Potassium 4.0 (3.5-5.1) mmol/L POC Chloride (101-112) mmol/L Chloride 104 (98-107) mmol/L Carbon Dioxide 28 (21-32) mmol/L POC Total CO2 (24-31) mmol/L Anion Gap 6 (3-11) POC Anion Gap (16-25) mmol/L POC BUN (7-18) mg/dl BUN 23 (6-23) mg/dl Creatinine 1.12 (0.6-1.4) mg/dl POC Creatinine (0.6-1.3) mg/dl Est Cr Clr Drug Dosing 55.8 ml/min eGFR 67.66 BUN/Creatinine Ratio 20.5 H (10-20) Glucose 122 H (70-99(Fasting)) mg/dl POC Glucose 119 H (70-99) mg/dl POC Glucose (other) (70-99) mg/dl Estimat Average Glucose 143 mg/dl Hemoglobin A1c 6.6 H (4.5-5.6) % Calcium 8.7 (8.6-10.3) mg/dl POC Ioniz Calcium Justus (1.12-1.32) mmol/l Magnesium 2.3 (1.7-2.4) mg/dl Total Bilirubin (0.2-1.0) mg/dl AST (13-39) U/L ALT (7-52) U/L Alkaline Phosphatase (34-104) U/L Troponin I High Sens (0-20) pg/ml Total Protein (6.0-8.3) gm/dl Albumin (3.4-5.0) gm/dl Globulin (2.5-4.0) gm/dl Albumin/Globulin Ratio (0.9-2) POC Stool Occult Blood (Negative) Blood Type Antibody Screen 11/20/24 11/19/24 11/19/24 Range/Units 00:18 22:49 22:43 WBC 10.50 (4.8-10.8) K/ul RBC 5.14 (4.70-6.10) M/uL Hgb 15.4 (14.0-18.0) g/dl POC Hgb 15.6 (14.0-18.0) g/dl Hct 44.8 (42.0-52.0) % POC Hct 46 (42-52) % MCV 87.2 (80.0-100.0) fL MCH 30.0 (25.0-34.0) pg MCHC 34.4 (32.0-36.0) g/dL RDW Std Deviation 40.2 (36.4-46.3) fL RDW Coeff of Carlin 12.8 (11.5-14.5) % Plt Count 178 (130-400) K/uL MPV 11.2 (9.4-12.4) fL Immature Gran % (Auto) % Neut % (Auto) % Lymph % (Auto) % Haralson % (Auto) % Eos % (Auto) % Baso % (Auto) % Neut # (Auto) (1.40-6.50) K/uL Lymph # (Auto) (1.20-3.40) K/uL Haralson # (Auto) (0.11-0.59) K/uL Eos # (Auto) (0.00-0.50) K/uL Baso # (Auto) (0.00-0.20) K/uL Immature Gran # (Auto) (0.01-0.20) K/uL PT 10.7 (9.0-12.0) Seconds INR 1.0 (0.9-1.1) APTT 31 (21-31) Seconds PTT Ratio 1.2 POC Sodium 140 (135-144) mmol/L Sodium 138 (136-145) mmol/L POC Potassium 4.1 (3.3-5.0) mmol/L Potassium 4.0 (3.5-5.1) mmol/L POC Chloride 101 (101-112) mmol/L Chloride 103 (98-107) mmol/L Carbon Dioxide 26 (21-32) mmol/L POC Total CO2 25 (24-31) mmol/L Anion Gap 9 (3-11) POC Anion Gap 19.0 (16-25) mmol/L POC BUN 27 H (7-18) mg/dl BUN 26 H (6-23) mg/dl Creatinine 1.19 (0.6-1.4) mg/dl POC Creatinine 1.3 (0.6-1.3) mg/dl Est Cr Clr Drug Dosing 52.5 ml/min eGFR 62.91 BUN/Creatinine Ratio 21.8 H (10-20) Glucose 130 H (70-99(Fasting)) mg/dl POC Glucose (70-99) mg/dl POC Glucose (other) 132 H (70-99) mg/dl Estimat Average Glucose mg/dl Hemoglobin A1c (4.5-5.6) % Calcium 9.1 (8.6-10.3) mg/dl POC Ioniz Calcium Justus 1.12 (1.12-1.32) mmol/l Magnesium (1.7-2.4) mg/dl Total Bilirubin 1.1 H (0.2-1.0) mg/dl AST 23 (13-39) U/L ALT 31 (7-52) U/L Alkaline Phosphatase 95 (34-104) U/L Troponin I High Sens 5.9 (0-20) pg/ml Total Protein 7.6 (6.0-8.3) gm/dl Albumin 4.1 (3.4-5.0) gm/dl Globulin 3.5 (2.5-4.0) gm/dl Albumin/Globulin Ratio 1.2 (0.9-2) POC Stool Occult Blood Positive A (Negative) Blood Type Antibody Screen 11/19/24 Range/Units 22:36 WBC (4.8-10.8) K/ul RBC (4.70-6.10) M/uL Hgb (14.0-18.0) g/dl POC Hgb (14.0-18.0) g/dl Hct (42.0-52.0) % POC Hct (42-52) % MCV (80.0-100.0) fL MCH (25.0-34.0) pg MCHC (32.0-36.0) g/dL RDW Std Deviation (36.4-46.3) fL RDW Coeff of Carlin (11.5-14.5) % Plt Count (130-400) K/uL MPV (9.4-12.4) fL Immature Gran % (Auto) % Neut % (Auto) % Lymph % (Auto) % Haralson % (Auto) % Eos % (Auto) % Baso % (Auto) % Neut # (Auto) (1.40-6.50) K/uL Lymph # (Auto) (1.20-3.40) K/uL Haralson # (Auto) (0.11-0.59) K/uL Eos # (Auto) (0.00-0.50) K/uL Baso # (Auto) (0.00-0.20) K/uL Immature Gran # (Auto) (0.01-0.20) K/uL PT (9.0-12.0) Seconds INR (0.9-1.1) APTT (21-31) Seconds PTT Ratio POC Sodium (135-144) mmol/L Sodium (136-145) mmol/L POC Potassium (3.3-5.0) mmol/L Potassium (3.5-5.1) mmol/L POC Chloride (101-112) mmol/L Chloride (98-107) mmol/L Carbon Dioxide (21-32) mmol/L POC Total CO2 (24-31) mmol/L Anion Gap (3-11) POC Anion Gap (16-25) mmol/L POC BUN (7-18) mg/dl BUN (6-23) mg/dl Creatinine (0.6-1.4) mg/dl POC Creatinine (0.6-1.3) mg/dl Est Cr Clr Drug Dosing ml/min eGFR BUN/Creatinine Ratio (10-20) Glucose (70-99(Fasting)) mg/dl POC Glucose (70-99) mg/dl POC Glucose (other) (70-99) mg/dl Estimat Average Glucose mg/dl Hemoglobin A1c (4.5-5.6) % Calcium (8.6-10.3) mg/dl POC Ioniz Calcium Justus (1.12-1.32) mmol/l Magnesium (1.7-2.4) mg/dl Total Bilirubin (0.2-1.0) mg/dl AST (13-39) U/L ALT (7-52) U/L Alkaline Phosphatase (34-104) U/L Troponin I High Sens (0-20) pg/ml Total Protein (6.0-8.3) gm/dl Albumin (3.4-5.0) gm/dl Globulin (2.5-4.0) gm/dl Albumin/Globulin Ratio (0.9-2) POC Stool Occult Blood (Negative) Blood Type O Positive Antibody Screen NEGATIVE PG Care Time/CCT Total # of Minutes Spent Total Time Spent with Patient: Total time spent is greater than 50% in coordination of care (as documented) at patient's floor/unit and/or counseling patient: Coding Level of Care Code 06243 INT INP/OBS CARE 2MIN Diagnoses Painless rectal bleeding K62.5
[2024-11-20] MEDS: HYDROCODONE/ACETAMOPHEN 5/325MG TAB PO SCH (09:22)
--- NOTE | 2024-11-20 12:25 | Discharge Summary ---
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 Patient had colonoscopy yesterday. Per patient currently getting colonoscopy every 3 years because of polyps. Yesterday had colonoscopy and 5 polyps were removed and 1 polyp was 20 mm found in the hepatic flexure. Multiple colonic angioectasis without bleeding were found in the ascending colon and in the cecum. Did okay after colonoscopy. Last night around 9 PM patient started to have rectal bleed multiple episodes. Until 1 AM the bleeding was getting worse but after that seems to be improving. Denies abdominal pain. No fevers. Micturating okay. No chest pain or shortness of breath. No headache. No runny nose or sore throat. Currently resting comfortably and hemodynamically stable. Past medical history. As mentioned above. Past surgical history. Colonoscopy. Knee arthroscopy. Lumbar hemilaminectomy. Status post lap sigmoid colectomy status colostomy at [facility] in 2004. Excision of cyst from left neck. Cerebral aneurysm clipped and shunt placed. Left inguinal hernia repair. Social history. . Quit smoking 2004. Smoked 1.5 pack a day for 35 years. Alcohol rarely. No drug use. Family history. Sister had brain aneurysm. Father had diabetes. ND. Sister had diverticulitis. Admission Exam Per Admitting Provider General- Not in distress Head- atraumatic Eyes- PERRL. ENT- oropharynx clear Neck- supple, no JVD. Lungs- clear to auscultation no wheezing or crackles Heart- regular rhythm; no murmur, no gallop. Abdomen- normal bowel sounds, soft, nontender, no distension Extremities- no pretibial edema, no erythema seen Neuro- alert, oriented PERRL, no facial palsy; no dysarthria; moves extremities Principal Diagnosis Lower Gastrointestinal Bleeding Discharge Exam Constitutional + well hydrated; no acute distress Eyes PERRL, conjunctivae normal, anicteric sclerae ENMT external ear and nose normal, oropharynx normal Respiratory normal respiratory effort, lungs clear to auscultation Cardiovascular Rate/Rhythm: regular rate and regular rhythm Gastrointestinal (Abdomen) normal bowel sounds, soft, nontender, no hepatosplenomegaly Neurologic PERRL, EOMI, accommodation nl, no face palsy, no dysarthria Psychiatric A+Ox3, euthymic affect Discharge Data Allergies Allergy/AdvReac Type Severity Reaction Status Date / Time zolpidem AdvReac Severe Hallucinations, Verified 11/19/24 22:39 confusion promethazine [From Phenergan] AdvReac Intermediate Hallucinati Verified 11/19/24 22:39 ng Consultations 11/20/24 00:30 ED Decision to Admit Stat 11/20/24 08:00 Consult Gastroenterology Routine Ordered Studies 11/19/24 22:20 CT Abd and Pelvis [CT abd pelvis IV con only] Stat Hospital Course (1) Painless rectal bleeding: (2) Status post colonoscopy with polypectomy: (3) Lower GI bleed: Plan 79-year-old male with past medical history significant for type 2 diabetes, hyperlipidemia, psoriasis, relapsing polychondritis, CAD, chronic left bundle- branch block, 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 Patient had colonoscopy yesterday. Per patient currently getting colonoscopy every 3 years because of polyps. Yesterday, he had colonoscopy and 5 polyps were removed and 1 polyp was 20 mm found in the hepatic flexure. Multiple colonic angioectasis without bleeding were found in the ascending colon and in the cecum. Did okay after colonoscopy. Last night around 9 PM patient started to have rectal bleed multiple episodes. Denied abd pain Hb on admission was 15.4, trended down to 14.2 this AM Has been hemodynamically stable His [employer] ASA was placed on hold and has been NPO Patient was evaluated by GI who discussed with Dr Hwang who performed the colonoscopy He recommended transfer to [facility] for procedure today I spoke with transfer center who connected to [facility] and patient was accepted for transfer Patient and were updated Patient transferred to [facility] Total Time Total Time Spent Total Time Spent (In Minutes): 50 Total Time Includes: Examination of the Patient, Discharge Planning, Medication Reconciliation, Communication With Other Providers and Other Discharge Plan Discharge Items Patient Disposition: Transfer Acute Care Hospital Reason For Visit: RECTAL BLEED Discharge Diagnosis: Lower Gastrointestinal Bleeding Condition on Discharge: Good Activity: Resume your previous activity Non-emergency contact: Primary Care Provider and Paper Inspector Call non-emergency contact if: you have any medication questions Follow-up/Referrals: Miguelito Bennett MD [Primary Care Provider] - Diet: Nothing by Mouth Addtl Attending Provider Instructions: Mr Sosa You presented to the hospital for rectal bleeding after your colonoscopy yesterday. You are being transferred to [facility] for evaluation by your Paper Inspector and possible procedure today. Please do not resume your aspirin until advised to do so and do not take any food by mouth until you get to [facility]. It was a pleasure taking care of you Pending Studies at Discharge: No Stand-Alone Forms: My [facility] Skilled Items Patient informed of condition?: Yes DNR: No Discharge Level of Care: Other Communicable Disease: No Discharge Prognosis: Stable Lines: Peripheral IV Urinary Catheter: No Medications and DC Order Prescriptions: Continued losartan 50 mg Tablet 50 mg PO HS furosemide 40 mg Tablet 40 mg PO HS atorvastatin 40 mg Tablet 40 mg PO HS hydrocodone-acetaminophen 5-325 mg Tablet 1 tab PO BID Rx Instructions: MAY TAKE ADDITIONAL TABLET AFTER FIRST DOSE 1 DAY/WEEK. metoprolol tartrate 25 mg Tablet 25 mg PO BID calcium carbonate 600 mg calcium (1,500 mg) Tablet 2,400 mg PO QAM levothyroxine 112 mcg tablet 112 mcg PO DAILYBB cholecalciferol (vitamin D3) [Vitamin D3] 50 mcg (2,000 unit) Capsule 50 mcg PO DAILY Held aspirin 81 mg Tablet,Delayed Release (Dr/Ec) 81 mg PO QAM Hold Instructions: Resume on 11/22/24. Hold for now due to bleed until advised to resume Discharge Orders: Discharge Order (Routine); Ordered 11/20/24 Ordered By: Kelin Cohen/Other Patient Handouts: Managing Type 2 Diabetes Admission Data Admit Date/Time: 11/20/24 04:44 Attending Provider: Kelin Blackwell I. Admit Provider: Herbie Degroot Primary Care Provider: Miguelito Bennett Other Providers: Herbie Degroot; Rafa Madera
[2024-11-20] MEDS ORDERED: LOSARTAN POTASSIUM 50 MG TAB PO SCH (21:00)
[2024-11-20] MEDS ORDERED: ATORVASTATIN 40 MG TAB PO SCH (21:00)
--- NOTE | 2024-11-20 22:03 | Electrocardiogram Report ---
Test Reason : Blood Pressure : */* mmHG Vent. Rate : 73 BPM Atrial Rate : 73 BPM P-R Int : 182 ms QRS Dur : 150 ms QT Int : 426 ms P-R-T Axes : -28 152 -18 degrees QTcB Int : 469 ms Normal sinus rhythm Right axis deviation Left bundle branch block Abnormal ECG When compared with ECG of 02-May-2007 09:55, No significant change Confirmed by Gamaliel Figueredo ([id number]) on 11/20/2024 10:03:09 PM Referred By: REFERRED SELF Confirmed By: Gamaliel Figueredo
== END 2024-11-20 13:16 | disposition short-term general hospital (02) | DRG 920 ==
LOC: ED 21:25 → EDINP 11-20 04:44 → 2S 11-20 08:17